=== PATIENT | male | born 1980 | race Caucasian/White ===

== ENCOUNTER 2017-09-05 13:49 | Emergency (ER) | payer BC ==
[~2017-09-05] VITALS: Ht 185.4 cm; Wt 149.6 kg
[~2017-09-05 13:49] MED LIST: ADULT LOW DOSE81 M1 PO; BENICAR40 MG PO; CATAPRES0.2 MG PO; CRESTOR20 MG PO; GEMFIBROZIL600 MG PO; GLIPIZIDE10 M1 PO; GLUCOPHAGE500 MG PO; LANTUS 10100 UNITS/ SQ; NovoLOG, HumaLOG SC; SIMVASTATIN40 M1 PO; TENORMIN100 MG PO; Vicodin,Lortab 5/500 PO; ZyrTEC PO; [UNRECOGNIZED DRUG - OTHER]; celeBREX PO
[2017-09-05 15:41] LABS: MCH 25.3 PG (29.0-34.0); MCV 79.3 FL (86-99); PLATELET COUNT 240 K/uL (156-360); RBC DIS.WIDTH-CV 13.7 % (11.8-14.6); RBC DIS.WIDTH-SD 39.5 % (39-53); RED BLOOD COUNT 5.17 M/uL (4.00-5.50); WHITE BLOOD COUNT 6.5 K/uL (4.1-10.2)
[2017-09-05 15:50] LABS: CHLORIDE 104 mEq/L (99-109); SODIUM 140 mEq/L (136-147)
[2017-09-05 15:52] LABS: GLUCOSE 151 mg/dL (70-99)
[2017-09-05 15:53] LABS: ANION GAP 11 MEQ/L (2-14)
[2017-09-05 15:54] LABS: TOTAL BILIRUBIN 0.3 mg/dL (0.0-1.0)
[2017-09-05 15:55] LABS: ALKALINE PHOSPHATASE 113 IU/L (3-129)
[2017-09-05 15:56] LABS: GFR ESTIMATE (CALCULATED) > 59 mL/min/
[2017-09-05 15:57] LABS: UREA NITROGEN (BUN) 10 mg/dL (9-23)
[2017-09-05 16:35] LABS: ADD MIUA? YES; BILIRUBIN NEGATIVE; BLOOD NEGATIVE; COLOR YELLOW ((YELLOW)); GLUCOSE (STRIP) NEGATIVE; KETONES NEGATIVE; LEUKOCYTES NEGATIVE; NITRITE NEGATIVE; PROTEIN (STRIP) 100; SPECIFIC GRAVITY 1.016 (1.000-1.030); UROBILINOGEN 0.2 MG/DL (0.2-1.0)
[2017-09-05 16:47] LABS: BACTERIA NONE SEEN /HPF; EPITHELIAL CELLS RARE /HPF; MUCUS TRACE /LPF; RED BLOOD CELLS 0-5 /HPF (0-5); UCUL ADDED? NO; UNCLASSIFIED CASTS 0-5 /LPF; WHITE BLOOD CELLS 0-5 /HPF (0-5)
[2017-09-05 17:49] LABS: LIPASE 24 U/L (1.0-51.0)
[2017-09-05] MEDS ORDERED: BENTYL20 MG PO (18:31)
[2017-09-05 19:59] VITALS: BP 174/84
== END 2017-09-05 20:00 | disposition home or self-care (01) ==
LOC: EME 13:49
DX: R10.32 Left lower quadrant pain (principal); E11.9 Type 2 diabetes mellitus without complications; Z98.84 Bariatric surgery status; E78.5 Hyperlipidemia, unspecified; I10 Essential (primary) hypertension; Z79.4 Long term (current) use of insulin; Z88.6 Allergy status to analgesic agent
CPT/HCPCS: 74176; 80053; 81003; 83690; 85027; 99281; 99283